=== PATIENT | male | born 1965 | race Caucasian/White ===

== ENCOUNTER 2025-03-18 06:34 | Observation (INO) | payer OTHER, SELFPAY ==
[2025-03-18] VITALS (70 sets, daily range): BP systolic 112–212; BP diastolic 54–120; PULSE 72–95; RESP 10–33; TEMP 36.1–36.9; O2SAT 95–100; BMI 29.2; BMI 29.8
--- NOTE | 2025-03-18 06:35 | XR_ITS ---
WS: [id number] XR chest 1V portable [id number] REASON FOR EXAM: Elevated blood pressure FINDINGS: Mild tortuosity and ectasia of the thoracic aorta normal heart size. Minimal calcified granulomatous disease bilaterally. No acute pulmonary parenchymal or pleural abnormality. Moderate thoracic levoscoliosis and mild degenerative thoracic spondylosis. XR/XR chest 1V portable [id number] IMPRESSION: No acute chest abnormality.
--- NOTE | 2025-03-18 06:35 | ECG_ITS ---
[employer] Test Date: 2025-03-18 Pat Name: Mike Peña Department: Room: Gender: Male Social Security Specialist: : 1965 Requested By: Gerardo Villagran Order Number: [id number] Sarah MD: Tanika Lindsey M.D. Measurements Intervals [place] Rate: 70 P: 52 VT: 166 QRS: 39 QRSD: 112 T: 200 QT: 415 QTc: 448 Interpretive Statements SINUS RHYTHM POSSIBLE LEFT ATRIAL ENLARGEMENT [-0.1mV P-WAVE IN V1/V2] INCOMPLETE RIGHT BUNDLE BRANCH BLOCK [90+ ms QRS DURATION, TERMINAL R IN V1/V2, 40+ ms S IN I/aVL/V4/V5/V6] ST DEVIATION AND MARKED T-WAVE ABNORMALITY, CONSIDER ANTEROLATERAL ISCHEMIA [-0.5+ mV T-WAVE IN I/aVL/V3-V6] ST DEVIATION AND MODERATE T-WAVE ABNORMALITY, CONSIDER INFERIOR ISCHEMIA [-0.1+ mV T-WAVE IN II/aVF] No previous ECG available for comparison Electronically Signed On 03-18-2025 07:56:04 CDT by Tanika Lindsey M.D. [email or web address] [id number]
--- NOTE | 2025-03-18 06:44 | ED_ITS ---
HPI - Dizziness 2 General: Chief Complaint: Dizziness Stated Complaint: high bp Time Seen by Provider: 03/18/25 06:35 History of Present Illness: HPI Narrative: 59-year-old male presents to the emergen cy room with complaint of dizziness and elevated blood pressure he works as a conductor on the train was in between [place] and [place] and began to have the symptoms was taken off the train and brought to the emergency room. Initially on exam he reports generally not feeling well having a bit of a headache. He has not had any difficulty speech or swallowing. No difficulty with gait or balance. Associated symptoms: Denies chest pain or chills Related Data Previous Rx's ?Medication ?Instructions ?Recorded aspirin 81 mg tablet,delayed 81 mg PO DAILY #90 tabs 0 03/19/25 release atorvastatin 40 mg tablet 40 mg PO BEDTIME #90 tabs lisinopril 2.5 mg tablet 2.5 mg PO DAILY #90 tabs metoprolol tartrate 25 mg tablet 25 mg PO BID@0900,210 0 #180 tabs 03/19/25 Allergies Allergy/AdvReac Type Severity Reaction Status Date / Time No Known Allergies Allergy Verified 03/18/25 06:43 Review of Systems 2 Const: Denies: fever(s) or chills Card: Denies: chest pain Resp: Denies: dyspnea GI: Denies: abdominal pain : Denies: dysuria, urinary frequency or urinary urgency Musc: Denies: neck pain or back pain Skin/Breast: Denies: rash PFSH ED 2 PFSH: Medical History Colostomy in place Colon cancer Primary hypertension Surgical History History of partial colectomy Social History Smoking and tobacco/nicotine status: never used tobacco/nicotine Alcohol intake: never Substance/Drug Use: never Physical Exam 2 Const: COMMON NORMALS: no acute distress GENERAL APPEARANCE: cooperative and comfortable ORIENTATION/CONSCIOUSNESS: Yes awake, Yes oriented to person, Yes oriented to place and Yes oriented to time HENMT: COMMON NORMALS: normocephalic, atraumatic and hearing grossly normal bilaterally HEAD & SCALP: normocephalic and atraumatic Resp: COMMON NORMALS: normal respiratory effort, No retractions, No use of accessory muscles and clear to auscultation bilaterally AUSCULTATION: clear to auscultation bilaterally Cardio: COMMON NORMALS: regular rate, regular rhythm and No murmurs present (Cardio) RATE: regular rate RHYTHM: regular rhythm GI: COMMON NORMALS: Soft to palpation and No hepatosplenomegaly present A USCULTATION: Yes normoactive bowel sounds PALPATION: Yes Soft to palpation, No Tenderness to palpation present (GI), No Guarding due to palpation present (GI) and Yes No hepatosplenomegaly present Extremity: COMMON NORMALS: normal to inspection, capillary refill normal, no clubbing, cyanosis or edema, no calf tenderness and no pedal edema Neuro: SENSORIUM/ORIENTATION: Yes oriented to person, Yes oriented to place and Yes oriented to time OTHER: No focal neurologic deficits. No facial droop no speech difficulty good strength in all extremities. Skin: COMMON NORMALS: no rashes or lesions noted GENERAL SKIN EXAM: no rashes or lesions noted Course 2 Vital Signs: Vital signs: Vital Signs Temperature 98.5 F 03/19/25 16:32 Pulse Rate 92 03/19/25 16:32 Respiratory Rate 15 03/19/25 16:32 Blood Pressure 154/95 03/19/25 16:32 Pulse Oximetry 92 03/19/25 16:32 Oxygen Delivery Me thod Room Air 03/19/25 05:00 MDM - Dizziness Medical Decision Making I was asked to come and check on the patient again by the nurse. Had been in the room at approximately 950 and spoke to him he was normal had no facial droop or difficulty with speech at this time but was somewhat drowsy. Did note his blood pressure had decreased slightly. He states his dizziness has improved. At approximately 1010 nurse called me back in the room when I went to the room he now had a facial droop that was new along with slurring of his speech. NIH score was done at that time was 2. Patient had facial droop and some mild dysarthria no other symptoms. Consulted neurology they do not recommend TNKase at this time I do recommend further evaluation monitor blood pressure he has already received aspirin. Patient will likely need MRI during hospitalization discussed with hospitalist consult cardiology. Orders written for admission. Medical Records I reviewed the patient's medical records. Lab Data I reviewed the patient's lab results. 03/19/25 05:25 03/19/25 05:25 Radiology Impressions Chest X-Ray 03/18/25 06:35 IMPRESSION: No acute chest abnormality. Head CT 03/18/25 10:07 IMPRESSION: 1. No acute intracranial hemorrhage or edema. 2. No change compared to study performed earlier the same day. Notified Gerardo Gallegos DO at 03/18/2025 10:17 AM. Head MRI 03/19/25 09:30 IMPRESSION: No acute intracranial findings Laboratory Results WBC 6.89 10^3/uL (3.29-11.43) 03/18/25 06:53 RBC 5.27 10^6/uL (3.85-5.65) 03/18/25 06:53 Hgb 16.10 g/dL (11.27-16.99) 03/18/25 06:53 Hct 46.5 % (37-53) 03/18/25 06:53 MCV 88.2 fl (82-101) 03/18/25 06:53 MCH 30.6 pg (27-33) 03/18/25 06:53 MCHC 34.6 g/dL (30-55) 03/18/25 06:53 RDW 12.6 % (12.1-15.1) 03/18/25 06:53 Plt Count 159 10^3/cmm (157-399) 03/18/25 06:53 MPV 9.1 fL (7.4-10.4) 03/18/25 06:53 Neut % (Auto) 77.1 % 03/18/25 06:53 Lymph % (Auto) 16.3 % 03/18/25 06:53 [place] % (Auto) 4.4 % 03/18/25 06:53 Eos % (Auto) 1.3 % 03/18/25 06:53 Baso % (Auto) 0.3 % 03/18/25 06:53 Neut # (Auto) 5.32 10^3/uL (1.8-7.7) 03/18/25 06:53 Lymph # (Auto) 1.1 10^3/uL (0.8-4.8) 03/18/25 06:53 [place] # (Auto) 0.3 10^3/uL (0.2-0.9) 03/18/25 06:53 Eos # (Auto) 0.1 10^3/uL (0.0-0.8) 03/18/25 06:53 Baso # (Auto) 0.0 10^3/uL (0.0-0.1) 03/18/25 06:53 Nucleated RBC % (auto) 0 % 03/18/25 06:53 Nucleated RBCs # 0.0 /100WBC 03/18/25 06:53 D-Dimer 0.39 ug/mLFEU (0-0.59) 03/18/25 06:53 Sodium 138 mmol/L (136-145) 03/18/25 06:53 Potassium 3.8 mmol/L (3.5-5.1) 03/18/25 06:53 Chloride 99 mmol/L (98-107) 03/18/25 06:53 Carbon Dioxide 26 mmol/L (22-29) 03/18/25 06:53 Anion Gap 16.8 (5-19) 03/18/25 06:53 BUN 11 mg/dL (6-20) 03/18/25 06:53 Creatinine 1.1 mg/dL (0.7-1.2) 03/18/25 06:53 GFR Calculation 68.5 mL/min (90-130) L 03/18/25 06:53 Glucose 119 mg/dL (65-115) H 03/18/25 06:53 POC Glucose 178 mg/dL (70-110) H 03/18/25 10:12 Calculated Osmolality 287 mOsm/kg (285-295) 03/18/25 06:53 Calcium 9.6 mg/dL (8.5-10.5) 03/18/25 06:53 Total Bilirubin 0.5 mg/dL (0.15-1.2) 03/18/25 06:53 AST 20 U/L (0-40) 03/18/25 06:53 ALT 32 U/L (0-41) 03/18/25 06:53 Alkaline Phosphatase 99 U/L (40-130) 03/18/25 06:53 Troponin T Baseline 11 ng/L (0-15) 03/18/25 06:53 Troponin T 120 Minute 8.46 ng/L (0-15) 03/18/25 08:29 Delta Troponin T -2.54 ABS# (0-10) L 03/18/25 08:29 Total Protein 8.2 g/dL (6.6-8.7) 03/18/25 06:53 Albumin 4.7 g/dL (3.5-5.2) 03/18/25 06:53 Globulin 3.5 g/dL (1.3-4.6) 03/18/25 06:53 Urine Color Yellow (Yellow) 03/18/25 07:02 Urine Appearance Clear (CLEAR) 03/18/25 07:02 Urine pH 8.0 (5-7) A 03/18/25 07:02 Ur Specific [place] 1.006 (1.005-1.030) 03/18/25 07:02 Urine Protein Trace (Negative) A 03/18/25 07:02 Urine Glucose (UA) Negative (Normal) 03/18/25 07:02 Urine Ketones Negative (Negative) 03/18/25 07:02 Urine Blood Trace (Negative) A 03/18/25 07:02 Urine Nitrate Negative (Negative) 03/18/25 07:02 Urine Bilirubin Negative (Negative) 03/18/25 07:02 Urine Urobilinogen 0.2 mg/dL (Negative) 03/18/25 07:02 Ur Leukocyte Esterase Negative (Negative) 03/18/25 07:02 Urine RBC 0-2 /hpf (0-2) 03/18/25 07:02 Urine WBC 0-5 /hpf (0-5) 03/18/25 07:02 Ur Squamous Epith Cells 0-5 /hpf (0-5) 03/18/25 07:02 Amorphous Sediment Not Reportable 03/18/25 07:02 Urine Bacteria None seen /hpf (NONE) 03/18/25 07:02 Hyaline Casts 0.40 /lpf 03/18/25 07:02 All radiology interpretation(s) finalized by discharge EKG Data EKG 1: Interpretation: EKG 03/18/2025 6:39 AM sinus rhythm rate of 70 SC interval 166 QTc 448. Incomplete bundle branch block patient has T wave inversion in 1 2 and aVF as well as in V2 through V6 with some ST depression noted. No previous EKGs for comparison EKG 2: Interpretation: EKG 03/18/2025 7:10 AM rate 76 SC interval 164 QTc 452 continues to have T wave inversion in V T2 through V6 with improvement of the previously seen ST depression some persistent ST depression in lead II. T waves upright in 2 and aVF. Compared to EKG done earlier same day EKG 3: Interpretation: EKG 03/18/2025 8:37 AM sinus rhythm rate of 74 parable 171 QTc 490. T wave inversion still present in VT through V6 there is still some ST depression in V4 5 [address] 6[address] No acute ST elevation. Reviewed and compared to previous EKGs done same day Discharge Plan Discharge Patient Disposition: Admitted As Inpatient Admit Provider: Tristin Martins Clinical Impression: CVA (cerebral vascular accident), Dizziness, Hypertensive urgency, Chest discomfort Condition: Stable Discharge Diet: Cardiac Discharge Activity: Increase activity as tolerated Coding Level of Care Code ED Bone Puller for Chg German NIH stroke score NIHSS Level Of Consciousness - 1a: 0 Level Of Consciousness Questions - 1b: Both Correct Level Of Consciousness Commands - 1c: Both Correct Best Gaze - 2: Normal Visual Felder - 3: No Visual Loss Facial Palsy - 4: Minor Paralysis Motor Arm Right - 5: No Drift Motor Arm Left - 5: No Drift Motor Leg Right - 6: No Drift Motor Leg Left - 6: No Drift Limb Ataxia - 7: Absent Sensory - 8: Normal Best Language - 9: No Aphasia Dysarthia - 10: Mild/Moderate Dysarthia Extinction And Inattention - 11: 0 Score Total Score: 2
--- NOTE | 2025-03-18 06:48 | ECG_ITS ---
[employer] Test Date: 2025-03-18 Pat Name: Mike Peña Department: Room: Gender: Male Manager Steel: : 1965 Requested By: Gerardo Villagran Order Number: [id number] Sarah MD: Tanika Lindsey M.D. Measurements Intervals [place] Rate: 76 P: 28 FL: 164 QRS: 30 QRSD: 109 T: 161 QT: 401 QTc: 452 Interpretive Statements SINUS RHYTHM POSSIBLE LEFT ATRIAL ENLARGEMENT [-0.1mV P-WAVE IN V1/V2] INCOMPLETE RIGHT BUNDLE BRANCH BLOCK [90+ ms QRS DURATION, TERMINAL R IN V1/V2, 40+ ms S IN I/aVL/V4/V5/V6] ST DEVIATION AND MARKED T-WAVE ABNORMALITY, CONSIDER ANTEROLATERAL ISCHEMIA [-0.5+ mV T-WAVE IN I/aVL/V3-V6] Compared to ECG 03/18/2025 06:39:48 No significant changes Electronically Signed On 03-18-2025 07:55:54 CDT by Tanika Lindsey M.D. [email or web address] [id number]
[2025-03-18 07:07] LABS: Hematocrit 46.5 % (37-53); Hemoglobin 16.10 g/dL (11.27-16.99); Mean Corpuscular HGB Conc 34.6 g/dL (30-55); Mean Corpuscular Hemoglobin 30.6 pg (27-33); Mean Corpuscular Volume 88.2 fl (82-101); Nucleated Red Blood Cells % 0 %; Platelet Count 159 10^3/cmm (157-399); Red Blood Count 5.27 10^6/uL (3.85-5.65); White Blood Count 6.89 10^3/uL (3.29-11.43)
[2025-03-18] MEDS: labetalol 5 mg/mL SDV 20mL 10 MG IVP (07:12)
[2025-03-18] MEDS: hyDRALAzine 20 mg/mL INJ 1 mL 10 MG IVP ×2 (07:13→08:52)
[2025-03-18 07:21] LABS: Troponin(5th) Baseline 11 ng/L (0-15)
[2025-03-18 07:24] LABS: Alanine Aminotransferase 32 U/L (0-41); Albumin Level 4.7 g/dL (3.5-5.2); Alkaline Phosphatase 99 U/L (40-130); Anion Gap 16.8 (5-19); Aspartate Amino Transferase 20 U/L (0-40); Blood Urea Nitrogen 11 mg/dL (6-20); Calcium 9.6 mg/dL (8.5-10.5); Carbon Dioxide 26 mmol/L (22-29); Chloride 99 mmol/L (98-107); Creatinine Clr Calc Pharmacy 97.7981; Globulin 3.5 g/dL (1.3-4.6); Glucose 119 mg/dL (65-115); Osmolality Calculated 287 mOsm/kg (285-295); Potassium 3.8 mmol/L (3.5-5.1); Sodium 138 mmol/L (136-145); Total Protein 8.2 g/dL (6.6-8.7)
[2025-03-18 08:05] LABS: Glucose Urine UA Negative (Normal); Nitrate Urine Negative (Negative); Specific Gravity, Urine 1.006 (1.005-1.030)
[2025-03-18 08:08] LABS: Add Urine Microscopic? YES
--- NOTE | 2025-03-18 08:37 | ECG_ITS ---
[employer] [facility] Test Date: 2025-03-18 Pat Name: Mike Peña Department: Room: Gender: Male Audio Engineer: : 1965 Requested By: Gerardo Villagran Order Number: [id number] Sarah MD: Tanika Lindsey M.D. Measurements Intervals [place] Rate: 74 P: 24 MA: 171 QRS: 25 QRSD: 108 T: 143 QT: 439 QTc: 490 Interpretive Statements SINUS RHYTHM POSSIBLE LEFT ATRIAL ENLARGEMENT [-0.1mV P-WAVE IN V1/V2] INCOMPLETE RIGHT BUNDLE BRANCH BLOCK [90+ ms QRS DURATION, TERMINAL R IN V1/V2, 40+ ms S IN I/aVL/V4/V5/V6] ST DEVIATION AND MARKED T-WAVE ABNORMALITY, CONSIDER ANTEROLATERAL ISCHEMIA [-0.5+ mV T-WAVE IN I/aVL/V3-V6] Compared to ECG 03/18/2025 07:10:56 No significant changes Electronically Signed On 03-18-2025 18:07:30 CDT by Tanika Lindsey M.D. [id number] [id number]
[2025-03-18] MEDS: LORazepam 1 MG/0.5 ML injection 2 MG IVP (08:42)
--- NOTE | 2025-03-18 08:42 | CT_ITS ---
WS: [id number] CT HEAD NONCONTRAST HISTORY: Dizziness hypertension TECHNIQUE: Contiguous axial imaging performed through the brain. Bone and soft tissue windows. Sagittal and coronal reformats reviewed. All CT scans at [facility] use at least one of these dose optimization techniques: automated exposure control; mA and/or kV adjustment per patient size (includes targeted exams where dose is matched to clinical indication); or iterative reconstruction. DLP: 1113.49 mGy.cm COMPARISON: None available. No acute intracranial hemorrhage, midline shift or mass effect. Very minimal atrophy and small vessel disease. No prior infarct. Ventricles: Normal size with no hydrocephalus. No inferior displacement of the cerebellar tonsils. Paranasal sinuses: As visualized are clear. Mastoid air cells: Well pneumatized. Calvarium and scalp: Skull is intact with no soft tissue edema or swelling. CT/CT head wo con* [id number] IMPRESSION: 1. No acute intracranial hemorrhage or edema. 2. Minimal cerebral atrophy and small vessel disease.
[2025-03-18 09:14] LABS: Troponin 5 2HR 8.46 ng/L (0-15)
[2025-03-18 09:15] LABS: Troponin 5 2HR Delta -2.54 ABS# (0-10)
--- NOTE | 2025-03-18 10:07 | CT_ITS ---
WS: [id number] CT HEAD NONCONTRAST HISTORY: SYMPTOMS OF ACUTE STROKE TECHNIQUE: Contiguous axial imaging performed through the brain. Bone and soft tissue windows. Sagittal and coronal reformats reviewed. All CT scans at [facility] use at least one of these dose optimization techniques: automated exposure control; mA and/or kV adjustment per patient size (includes targeted exams where dose is matched to clinical indication); or iterative reconstruction. DLP: 1162.57 mGy COMPARISON: 03/18/2025 No acute intracranial hemorrhage, midline shift or mass effect. Mild atrophy and small vessel disease. No interval change. No prior infarct. Ventricles: Normal size with no hydrocephalus. Paranasal sinuses: As visualized are clear. Mastoid air cells: Well pneumatized. Calvarium and scalp: Skull is intact with no soft tissue edema or swelling. CT/CT head thrombolytic [id number] IMPRESSION: 1. No acute intracranial hemorrhage or edema. 2. No change compared to study performed earlier the same day. Notified Gerardo Gallegos DO at 03/18/2025 10:17 AM.
--- NOTE | 2025-03-18 10:35 | PC.NURSE ---
Addendum entered by Tena Schafer 03/18/25 10:49: Tele Cate Novak Called back @ 4758 Original Note: Called [facility] Stroke @ 1512
--- NOTE | 2025-03-18 11:11 | PC.NURSE ---
verbal order from Dr. Gallegos to give pt 1L of normal saline.
--- NOTE | 2025-03-18 11:18 | PC.NURSE ---
this RN walked into patients room at approximately 1000, patient appeared to have left sided facial droop and slurred speech. this RN alerted Dr. Gallegos and advised him that there was a change in pt condition and he needed to reassess patient. Provider assessed patient and requested stroke alert be called at 1003. patient was escorted to CT by this RN, Natty staffing manager, and WALLY Castillo- foreign exchange student coordinator.
--- NOTE | 2025-03-18 11:45 | P.HP_ITS ---
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 During the emergency department stay, there was a transient unilateral facial droop and patient-reported speech change, noted as different by a co-worker; speech has partially improved but still sounds different to the patient. Reports transient visual change in the left eye earlier (felt different compared to the right side), which improved by the time of bedside testing. Denies headache, photophobia, chest pain, pressure, or exertional chest symptoms. Denies fever, chills, sore throat, sneezing, cough, myalgias, nausea, vomiting, or diarrhea. No known prior history of stroke or transient ischemic attack. No known history of irregular heartbeat (e.g., atrial fibrillation). Home blood pressures reportedly in the 140s mmHg systolic; more recently at work in the 170s systolic; markedly higher on presentation. Reports motion can provoke nausea and sensation of being upside down during episodes. Intermittent tinnitus reported. Not taking prescription medications currently and denies surx-xol-[id number] nonsteroidal anti-inflammatory drug use. Review of Systems 2 Const: Denies: fever(s), chills, body aches or malaise ENMT: Denies: throat pain Card: Denies: chest pain, edema, pre-syncope or dyspnea on exertion Resp: Denies: dyspnea, productive cough, change in phlegm color or hemoptysis GI: Denies: abdominal pain, nausea, vomiting, diarrhea, constipation, hematochezia or melena : Denies: flank pain, difficulty urinating, urinary frequency or hematuria Musc: Denies: back pain, joint swelling or joint redness Skin/Breast: Denies: rash or new lesions Neuro: Reports: vertigo and Slurred speech present; Denies: headache(s) or confusion Medications/Allergies Home Medications ?Medication ?Instructions ?Recorded ?Confirmed ?Last Taken ?Type No Known Home Medications 03/18/2503/03 Unknown History Allergies Allergy/AdvReac Type Severity Reaction Status Date / Time No Known Allergies Allergy Verified 03/18/25 06:43 PFSH Acute 2 PFSH: Medical History Colostomy in place Colon cancer HTN (hypertension) Surgical History History of partial colectomy Social History (Updated 03/18/25 @ 15:52 by Tristin Martins MD) Smoking and tobacco/nicotine status: never used tobacco/nicotine Alcohol intake: never Substance/Drug Use: never Vitals/I&O/Wt Last Vital Signs Temp 98.5 F 03/18/25 06:35 Pulse 90 03/18/25 11:15 Resp 22 H 03/18/25 11:15 BP 163/90 03/18/25 11:15 Pulse Ox 97 03/18/25 08:55 O2 Del Method Room Air 03/18/25 07:20 Weight last 48 hrs Weight 108.862 kg Physical Exam 2 Const: COMMON NORMALS: patient oriented x3 and alert GENERAL APPEARANCE: c ooperative ORIENTATION/CONSCIOUSNESS: Yes awake HENMT: COMMON NORMALS: oropharynx normal Neck/C-Spine: COMMON NORMALS: no JVD Resp: COMMON NORMALS: normal respiratory effort and clear to auscultation bilaterally AUSCULTATION: clear to auscultation bilaterally Cardio: COMMON NORMALS: no JVD, regular rhythm, S1 normal heart sound present, S2 normal heart sound present and No murmurs present (Cardio) RHYTHM: regular rhythm HEART SOUNDS: S1 normal heart sound present and S2 normal heart sound present GI: COMMON NORMALS: Normal to inspection, nondistended, normoactive bowel sounds present, Soft to palpation and non-tender PALPATION: Yes Soft to palpation Extremity: COMMON NORMALS: no joint enlargement and no pedal edema Neuro: COMMON NORMALS: patient oriented x3 and moves all extremities S ENSORIUM/ORIENTATION: Yes alert OTHER: He is awake and alert, keenly responsive. Pleasant, conversant. Mild left- sided facial droop. No obvious dysarthria. No difficulty with horizontal tracking. No trigger nystagmus or vertigo. Visual stubbs full to confrontation. FNF normal. Sensation symmetrical and intact. No sensory extinction. No upper or lower extremity drift. Skin: COMMON NORMALS: no rashes or lesions noted GENERAL SKIN EXAM: no rashes or lesions noted Data 03/18/25 06:53 03/18/25 06:53 A&P Assessment and plan 1. CVA (cerebral vascular accident): Suspected CVA with left-sided facial droop, dysarthria while in the ED, vertigo preadmission. Stroke code was called. Was seen by neurology. CT head was repeated, unchanged. Per discussion with neurology in ED no intervention recommended. Reviewed vitals, D-dimer, CBC, CMP, UA, head CT, chest x-ray, ED provider note, discussed with ED provider. - Continue aspirin. - Start statin. - Order A1C and lipid profile. - Request carotid duplex ultrasound. - Request MRI brain. - Obtain echocardiogram. - Monitor telemetry. - Neurology consultation/follow-up. - Physical therapy (PT), occupational therapy (OT), and speech therapy (ST) evaluation. - Discussed long-term blood pressure targets 120/80. Permissive hypertension for now. 2. Abnormal EKG: Incomplete RBBB as well as T wave inversion ST depressions in 2, aVL, as well as anterolaterally. Denies chest pain or pressure. However, also with neurological symptoms. Difficult to say if cardiac ischemia may be present. Will need additional assessment and monitoring. - Complete serial 12-lead electrocardiograms (ECGs). - Monitor telemetry for possible cardiac ischemia. - Obtain TTE - Cardiology consultation pending. -Additional workup of cardiovascular risk factors as above. Heparin drip was initially ordered but discontinued. 3. Hypertensive urgency: Received labetalol, hydralazine in ED. Blood pressure so far down to 155/87. Hold off any further antihypertensive agents. Permissive hypertension with suspected CVA, unless blood pressure rising above 220/120. Long-term will benefit from close blood pressure monitoring control. Discussed with him long-term target 120/80 blood pressure. Plan: Hyperglycemia: Possible diabetes, no prior diagnosis. Discussed with him noted elevated sugar. Check A1c. PDMP PDMP Reviewed: Not Reviewed Attestations 2 Medical Necessity Statement*: Place in observation for additional assessment management after CVA, hypertensive urgency, further cardiac assessment for possible cardiac ischemia with abnormal EKG. and High MDM includes amount and/or complexity of data reviewed/ordered [ resulted lab(s)/test(s), ordered lab(s)/test(s) and other healthcare professional discussion] as documented Diagnoses CVA (cerebral vascular accident) I63.9 Abnormal EKG R94.31 Hypertensive urgency I16.0
--- NOTE | 2025-03-18 11:46 | USCV_ITS ---
Mike Peña Age: 59 Gender: M : 1965 Exam Date: 03/18/2025 15:56 Ordering Phys: Tristin Martins MD Technologist: KARMEN Exam Location: [facility] – [place] Indication: TIA BP: 143 / 85 HR: 85 Rhythm: Sinus Technical Quality: Adequate MEASUREMENTS (Male / Female) Normal Values 2D ECHO LV Diastolic Diameter PLAX 4.5 cm 4.2 - 5.9 / 3.9 - 5.3 cm IVS Diastolic Thickness 1.3 cm 0.6 - 1.0 / 0.6 - 0.9 cm IVS Systolic Thickness 2.2 cm LVPW Diastolic Thickness 1.6 cm 0.6 - 1.0 / 0.6 - 0.9 cm LVPW Systolic Thickness 2.6 cm LVOT Diameter 2.0 cm LV Ejection Fraction 2D Teich 62.1 % LV Ejection Fraction MOD 4C 61.2 % LV Ejection Fraction MOD 2C 61.9 % LV Ejection Fraction 2C AL 66.5 % LA Diameter 2.8 cm RA Systolic Volume 4C AL 63.0 ml RA Systolic Volume 4C MOD 61.0 ml LA Sys Volume AL 49.0 cm cubed LA Sys Volume Index AL 19.9 cm cubed/m squared Aorta at Sinotubular Diameter 2.9 cm M-MODE LA Ao Ratio MM 1.6 AV Cusp Separation MM 1.8 cm DOPPLER AV Peak Velocity 148.0 cm/s LVOT Peak Velocity 99.0 cm/s AV Area Cont Eq vti 2.3 cm squared AV Area Cont Eq pk 2.0 cm squared MV Peak Velocity 104.0 cm/s MV Area PHT 6.1 cm squared Mitral E to A Ratio 0.6 TV Peak E Velocity 79.0 cm/s PV Peak Velocity 143.0 cm/s FINDINGS Left Ventricle Moderate left ventricular hypertrophy. Severe hypertrophy of the LV apex. LV ejection fraction around 70%. Grade I/IV diastolic dysfunction (abnormal relaxation filling pattern), normal to mildly elevated filling pressures. Right Ventricle Normal right ventricular size and systolic function. Right Atrium The right atrium is normal in size. Left Atrium The left atrium is normal in size. Mitral Valve Mild mitral valve regurgitation. Aortic Valve No gross abnormalities no Tricuspid Valve No gross abnormalities no Pulmonic Valve Pulmonic valve not well visualized. Pericardium No pericardial effusion. Aorta Normal aortic annulus size. IVC Inferior vena cava not visualized. CONCLUSIONS Features suggestive of hypertrophic cardiomyopathy, possibly of apical type Normal right ventricular size and systolic function. Mild mitral valve regurgitation. There is no pericardial effusion. There are no intracardiac masses. Need to do Doppler examination of the LV mid cavity to the apex to look for any significant gradient Dr Tanika Lindsey MD [facility] (Electronically Signed) Final Date: 18 March 2025 17:18 S
--- NOTE | 2025-03-18 11:51 | PC.NURSE ---
Admit Note Patient admitted to [facility] from ER via stretcher. Covering service notified Dr Martins of the pt's arrival to floor. Patient presents with dizziness and stroke-like symptoms with high blood pressures. Orders reviewed & will continue to monitor. Patient and/or financial services sales representative oriented to environment, equipment, and informed of the following as found in the admission booklet: patient rights & responsibilities, visitor policy, hand and respiratory hygiene practice. Other education includes: fall risk and prevention due to dizziness, stroke monitoring, informed pt on tests such as echocardiogram and carotid duplex. Pt has a co-worker at bedside and he is okay with him being there while nurse asks for pt's information, i asked the pt the co worker can step out to respect his privacy and confidentiality, pt verbalizes, he brought me here and it's okay for me.: Patient and/or financial services sales representative call light and how to use it.
--- NOTE | 2025-03-18 11:52 | USCV_ITS ---
Mike Peña Age: 59 Gender: M : 1965 Exam Date: 03/18/2025 16:11 Ordering Phys: Tristin Martins MD Technologist: KARMEN [place]am [place] [facility] [place]: TIA Risk Factors: Previous Vascular Surgery: Right Brachial BP: / Left Brachial BP: / Right Left Velocity (cm/s) Spectral Plaque Velocity (cm/s) Spectral Plaque Syst/Diast Broadening Syst/Diast Broadening 87.00/ 10.30 Prox CCA 87.70 / 9.20 80.00/ 17.30 Mid CCA 111.40/ 14.80 95.10/ 9.20 Distal CCA 88.10 / 9.80 52.80/ 5.60 Prox ICA 65.50 / 7.80 62.60/ 7.70 Mid ICA 75.10 / 11.20 49.50/ 9.00 Distal ICA 60.90 / 8.40 81.20 ECA 144.90 0.70 ICA/CCA 0.90 Antegrade Vertebral Antegrade 39.70/ 10.30 cm/s 46.60/ 12.60 cm/s Tri Subclavian Tri 107.3 139.7 0 0 FINDINGS Comparison: none available. No significant elevation of systolic or diastolic velocities. Waveforms are normal. Diffuse, mild bilateral scattered calcified plaque and intimal thickening throughout the common carotid arteries and extending through the bifurcation. CONCLUSIONS Bilateral ICA stenosis less than 50%. Mild carotid atherosclerosis. Dr. Lucy Ramirez DO (Electronically Signed) Final Date: 19 March 2025 07:47 S
--- NOTE | 2025-03-18 12:42 | P.CONIM_ITS ---
Providers/Reason For Consult 2 Consulting Physician/Specialty*: SHARATH Lindsey MD/cardiology Reason for Consult*: Patient uncontrolled blood pressure, abnormal EKG and some nonspecific chest symptoms Requesting Physician: Dr. Martins Attending Physician: Tristin Martins History of Present Illness History of Present Illness Mike Peña is a 59 year old male With no significant past medical history, is admitted to the hospital through the emergency room where he presented with complaints of nausea/dizziness/unsteady gait. The patient was found to have an abnormal EKG. Cardiology consult is requested for further cardiac evaluation and recommendations. This patient has no significant past medical history for any heart disease. Approximately a month ago, he was found to have elevated blood pressure, as he was taking his pressure at the workplace. He made an appointment to see his primary care provider for this. Apparently it has not been done yet. He has not been taking any blood pressure medications. This morning, he was passing through this area on a train. He works as a conductor in the train. He started having the nausea and dizziness. He also felt unsteady in his gait. His blood pressure was found to be elevated. For these complaints, he came to the emergency room. He did not have any chest pain or chest tightness. No palpitations. No unusual shortness of breath. No fever, chills or cough. His family history significant for mother dying of brain aneurysm in her 70s. Father had a myocardial infarction in his 80s. No other relevant family history. Patient denies any smoking abuse, alcohol abuse or any other substance abuse. He has a history of colon cancer and had a colostomy approximately 9 years ago at the [facility] in [place]. He had several EKGs at that time. But never had any stress test or cardiac catheterization, as far as the patient can recall. Review of Systems 2 Narrative: CONSTITUTIONAL: No fever or chills. EYES: No blurring of vision or other visual disturbances lately. ENT: No hoarseness of voice, auditory disturbances or sore throat. CARDIOVASCULAR: As mentioned above. RESPIRATORY: No significant cough. GASTROINTESTINAL: History of colostomy approximately 9 years ago. GENITOURINARY: No dysuria or hematuria. INTEGUMENTARY: No skin rashes or history of skin cancer. NEURO: No transient ischemic attacks or amaurosis. PSYCHIATRIC: No history of psychosis or major depression. HEMATOLOGIC: No bleeding disorders or significant anemia. ENDOCRINE: No history of polyuria or polydipsia. MUSCULOSKELETAL: No recent joint pain or swelling. ALLERGY/IMMUNOLOGY: As mentioned above. Medications/Allergies Home Medications ?Medication ?Instructions ?Recorded ?Confirmed ?Last Taken ?Type No Known Home Medications 03/18/2503/03 Unknown History Allergies Allergy/AdvReac Type Severity Reaction Status Date / Time No Known Allergies Allergy Verified 03/18/25 06:43 Current Medications Generic Name Dose Route Start Last Admin Trade Name Freq PRN Reason Stop Dose Admin Heparin Sodium/Sodium Chloride 25,000 unit in 500 mls @ 0 mls/hr 03/18/25 10:08 03/18/25 11:37 Heparin Drip IV Not Given CONT RUBY Protocol Per Protocol PFSH Acute 2 PFSH: Medical History Colostomy in place Colon cancer HTN (hypertension) Surgical History History of partial colectomy Social History Smoking and tobacco/nicotine status: never used tobacco/nicotine Alcohol intake: never Substance/Drug Use: never Vitals/I&O/Wt Last Vital Signs Temp 97.0 F L 03/18/25 11:59 Pulse 90 03/18/25 11:59 Resp 19 H 03/18/25 11:59 BP 155/87 03/18/25 11:59 Pulse Ox 100 03/18/25 11:59 O2 Del Method Room Air 03/18/25 11:59 Weight last 48 hrs Weight 245 lb Weight 240 lb Physical Exam 2 Narrative: GENERAL: The patient is alert and oriented times three. Not in any acute distress. HEENT: No significant pallor, icterus or lymphadenopathy.Oral cavity: There are no mucous membrane lesions. NECK: Trachea appears to be central. No masses noted. No JVD or thyromegaly appreciated. RESPIRATORY: Chest is symmetrical. No intercostals muscle retraction or any accessory muscle activation. There is no chest wall tenderness. Breath sounds are heard bilaterally. No rales or rhonchi heard. No evidence of any consolidation. BREASTS: Deferred. HEART: The heart sounds are normal. No S3 or S4. No significant murmurs. No pericardial rub ABDOMEN: No vessel pulsations or distention. No tenderness. No organomegaly. The colostomy bag is draining appreciated. Bowel sounds are normally heard. : Deferred. RECTAL: Deferred. LYMPHATIC: No lymphadenopathy noted in the neck. EXTREMITIES: No edema or cyanosis. No clubbing. Good peripheral pulses MUSCULOSKELETAL: No acute joint deformities or swelling SKIN: There are no significant rashes or ecchymosis NEUROPSYCHIATRIC: The patient is alert and oriented x3. Appears to be in a good mood. No tremors or rigidity noted. Data 03/18/25 06:53 03/18/25 06:53 Other Labs: Laboratory Last Values WBC 6.89 10^3/uL (3.29-11.43) 03/18/25 06:53 RBC 5.27 10^6/uL (3.85-5.65) 03/18/25 06:53 Hgb 16.10 g/dL (11.27-16.99) 03/18/25 06:53 Hct 46.5 % (37-53) 03/18/25 06:53 MCV 88.2 fl (82-101) 03/18/25 06:53 MCH 30.6 pg (27-33) 03/18/25 06:53 MCHC 34.6 g/dL (30-55) 03/18/25 06:53 RDW 12.6 % (12.1-15.1) 03/18/25 06:53 Plt Count 159 10^3/cmm (157-399) 03/18/25 06:53 MPV 9.1 fL (7.4-10.4) 03/18/25 06:53 Neut % (Auto) 77.1 % 03/18/25 06:53 Lymph % (Auto) 16.3 % 03/18/25 06:53 Porter % (Auto) 4.4 % 03/18/25 06:53 Eos % (Auto) 1.3 % 03/18/25 06:53 Baso % (Auto) 0.3 % 03/18/25 06:53 Neut # (Auto) 5.32 10^3/uL (1.8-7.7) 03/18/25 06:53 Lymph # (Auto) 1.1 10^3/uL (0.8-4.8) 03/18/25 06:53 Porter # (Auto) 0.3 10^3/uL (0.2-0.9) 03/18/25 06:53 Eos # (Auto) 0.1 10^3/uL (0.0-0.8) 03/18/25 06:53 Baso # (Auto) 0.0 10^3/uL (0.0-0.1) 03/18/25 06:53 Nucleated RBC % (auto) 0 % 03/18/25 06:53 Nucleated RBCs # 0.0 /100WBC 03/18/25 06:53 D-Dimer 0.39 ug/mLFEU (0-0.59) 03/18/25 06:53 Sodium 138 mmol/L (136-145) 03/18/25 06:53 Potassium 3.8 mmol/L (3.5-5.1) 03/18/25 06:53 Chloride 99 mmol/L (98-107) 03/18/25 06:53 Carbon Dioxide 26 mmol/L (22-29) 03/18/25 06:53 Anion Gap 16.8 (5-19) 03/18/25 06:53 BUN 11 mg/dL (6-20) 03/18/25 06:53 Creatinine 1.1 mg/dL (0.7-1.2) 03/18/25 06:53 GFR Calculation 68.5 mL/min (90-130) L 03/18/25 06:53 Glucose 119 mg/dL (65-115) H 03/18/25 06:53 POC Glucose 178 mg/dL (70-110) H 03/18/25 10:12 Calculated Osmolality 287 mOsm/kg (285-295) 03/18/25 06:53 Calcium 9.6 mg/dL (8.5-10.5) 03/18/25 06:53 Total Bilirubin 0.5 mg/dL (0.15-1.2) 03/18/25 06:53 AST 20 U/L (0-40) 03/18/25 06:53 ALT 32 U/L (0-41) 03/18/25 06:53 Alkaline Phosphatase 99 U/L (40-130) 03/18/25 06:53 Troponin T Baseline 11 ng/L (0-15) 03/18/25 06:53 Troponin T 120 Minute 8.46 ng/L (0-15) 03/18/25 08:29 Delta Troponin T -2.54 ABS# (0-10) L 03/18/25 08:29 Total Protein 8.2 g/dL (6.6-8.7) 03/18/25 06:53 Albumin 4.7 g/dL (3.5-5.2) 03/18/25 06:53 Globulin 3.5 g/dL (1.3-4.6) 03/18/25 06:53 Urine Color Yellow (Yellow) 03/18/25 07:02 Urine Appearance Clear (CLEAR) 03/18/25 07:02 Urine pH 8.0 (5-7) A 03/18/25 07:02 Ur Specific Watkins 1.006 (1.005-1.030) 03/18/25 07:02 Urine Protein Trace (Negative) A 03/18/25 07:02 Urine Glucose (UA) Negative (Normal) 03/18/25 07:02 Urine Ketones Negative (Negative) 03/18/25 07:02 Urine Blood Trace (Negative) A 03/18/25 07:02 Urine Nitrate Negative (Negative) 03/18/25 07:02 Urine Bilirubin Negative (Negative) 03/18/25 07:02 Urine Urobilinogen 0.2 mg/dL (Negative) 03/18/25 07:02 Ur Leukocyte Esterase Negative (Negative) 03/18/25 07:02 Urine RBC 0-2 /hpf (0-2) 03/18/25 07:02 Urine WBC 0-5 /hpf (0-5) 03/18/25 07:02 Ur Squamous Epith Cells 0-5 /hpf (0-5) 03/18/25 07:02 Amorphous Sediment Not Reportable 03/18/25 07:02 Urine Bacteria None seen /hpf (NONE) 03/18/25 07:02 Hyaline Casts 0.40 /lpf 03/18/25 07:02 EKG 1: My Interpretation: The EKG showed a normal sinus rhythm with a persistent T inversions in the precordial and high lateral leads. Minimal ST depressions in these leads. Subsequent EKG showed some T inversions in the inferior leads as well. These features may also suggest cardiomyopathy Other data: Echocardiogram from today Features suggestive of hypertrophic cardiomyopathy, possibly of apical type Normal right ventricular size and systolic function. Mild mitral valve regurgitation. There is no pericardial effusion. There are no intracardiac masses. Need to do Doppler examination of the LV mid cavity to the apex to look for any significant gradient A&P Assessment and plan 1. Abnormal EKG: The EKG changes could be will be related to cardiomyopathy. Ischemia cannot be ruled out. For further evaluation, a Myocardial perfusion imaging would be appropriate. 2. 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 No documented arrhythmias so far. 3. Dizziness: The etiology is unclear. Patient may have some form of tubular dysfunction. Arrhythmia is a possibility. So far there is no documented arrhythmia 4. Primary hypertension: Patient has stage II hypertension. May start on antihypertensive medication. In view of the hypertrophy, I may start him on a beta-kristi Plan: Reviewed the echocardiogram. Patient needs to have a Doppler study of the LV cavity to look for any gradient Consider Myocardial perfusion imaging, to further evaluate the coronary status. May start him on a beta-kristi -carvedilol 6.25 mg p.o. twice daily May be closely monitored on telemetry. Based on the clinical progress, further recommendations will be made. Thank you for the opportunity to evaluate this patient and make these recommendations PDMP PDMP Reviewed: Not Reviewed Coding Level of Care Code 54482 Diagnoses Abnormal EKG R94.31 Hypertrophic cardiomyopathy I42.2 Dizziness R42 Primary hypertension I10 Hypertension type: primary hypertension
[2025-03-18 12:46] LABS: Troponin 5 6HR 12.12 ng/L (0-15); Troponin 5 6HR Delta 1.12 ng/L (0-12)
[2025-03-18] MEDS: ondansetron 2 mg/ML SDV 2 mL 4 MG IVP (12:50)
--- NOTE | 2025-03-18 16:13 | PC.NURSE ---
Pt stated he still feels being cold and have chills even if the room was feels so warm. Check Temp Orally-101.3 F. PRN Tylenol given, Dr Rodrigez notified.
--- NOTE | 2025-03-18 18:45 | PC.NURSE ---
Shift Note Frequent safety and comfort rounds continue. Orders and/or nursing care completed as indicated. Patient monitored for response to intervention and treatment(s). Education provided includes NPO after midnight for cardiac stress test to check his heart, informed pt and that he will have MRI head to rule out stroke, he will have PT treatment while here and he will start taking atorvastatin and aspirin and to let nurse know for any pain,discomfort or dizziness. Pt stated, his speech and voice tone has pretty much return back to normal, pt stated he is not dizzy and just want to get some rest tonight. Pt has more color in his face than his arrival to room this morning. Patient and/or telephone service representative verbalizes understanding. Will continue to monitor.
--- NOTE | 2025-03-18 21:50 | ECG_ITS ---
[employer] Test Date: 2025-03-18 Pat Name: Mike Peña Department: Room: 104 Gender: Male It Investment/Portfolio Manager: : 1965 Requested By: Andrea Villagran Order Number: [id number] Smith MD: Tanika Lindsey M.D. Measurements Intervals [place] Rate: 92 P: 44 MT: 164 QRS: 19 QRSD: 110 T: 180 QT: 384 QTc: 476 Interpretive Statements SINUS RHYTHM POSSIBLE LEFT ATRIAL ENLARGEMENT [-0.1mV P-WAVE IN V1/V2] INCOMPLETE RIGHT BUNDLE BRANCH BLOCK [90+ ms QRS DURATION, TERMINAL R IN V1/V2, 40+ ms S IN I/aVL/V4/V5/V6] ST DEVIATION AND MODERATE T-WAVE ABNORMALITY, CONSIDER ANTEROLATERAL ISCHEMIA [-0.1+ mV T-WAVE IN V3-V6] ST DEVIATION AND MODERATE T-WAVE ABNORMALITY, CONSIDER INFERIOR ISCHEMIA [-0.1+ mV T-WAVE IN II/aVF] Compared to ECG 03/18/2025 08:37:46 No significant changes Electronically Signed On 03-19-2025 13:46:37 CDT by Tanika Lindsey M.D. [email or web address]
[2025-03-18] MEDS: metoprolol tartrate 1 mg/1 mL SDV 5 mL 5 MG IVP (22:32)
--- NOTE | 2025-03-18 22:48 | ECG_ITS ---
[employer] Test Date: 2025-03-18 Pat Name: Mike Peña Department: Room: 104 Gender: Male Preventative Maintenance Technician: : 1965 Requested By: Tristin Martins Order Number: [id number] Sarah MD: Tanika Lindsey M.D. Measurements Intervals [place] Rate: 83 P: 42 DE: 144 QRS: 35 QRSD: 106 T: 197 QT: 400 QTc: 472 Interpretive Statements SINUS RHYTHM POSSIBLE LEFT ATRIAL ENLARGEMENT [-0.1mV P-WAVE IN V1/V2] INCOMPLETE RIGHT BUNDLE BRANCH BLOCK [90+ ms QRS DURATION, TERMINAL R IN V1/V2, 40+ ms S IN I/aVL/V4/V5/V6] ST DEVIATION AND MARKED T-WAVE ABNORMALITY, CONSIDER ANTEROLATERAL ISCHEMIA [-0.5+ mV T-WAVE IN I/aVL/V3-V6] ST DEVIATION AND MODERATE T-WAVE ABNORMALITY, CONSIDER INFERIOR ISCHEMIA [-0.1+ mV T-WAVE IN II/aVF] Compared to ECG 03/18/2025 21:50:27 No significant changes Electronically Signed On 03-19-2025 13:46:07 CDT by Tanika Lindsey M.D. [email or web address]
[2025-03-18 23:39] LABS: Troponin(5th) Baseline 34 ng/L (0-15)
[2025-03-19] VITALS (16 sets, daily range): BP systolic 154–183; BP diastolic 78–104; PULSE 80–105; RESP 15–29; TEMP 36.6–36.9; O2SAT 92–98; BMI 29.0
[2025-03-19] MEDS: heparin 5,000 unit/mL INJ 1 mL 5000 UNIT IVP (00:52)
[2025-03-19] MEDS: heparin drip 25,000 UNIT/500 ML PREMIX 32 UNIT IV (00:53)
[2025-03-19 01:45] LABS: Troponin 5 2HR 40.61 ng/L (0-15); Troponin 5 2HR Delta 6.61 ABS# (0-10)
[2025-03-19] MEDS: diphenhydrAMINE 50 mg/mL SDV 1mL IVP (01:57)
--- NOTE | 2025-03-19 03:47 | PC.NURSE ---
Telemetry: Patient's telemetry was concerning for St elevation, Dr. Sevilla gave orders for troponin series. Trop showed elevation so Dr. Sevilla started heparin gtt order
--- NOTE | 2025-03-19 03:49 | PC.NURSE ---
Anxiety: patient was feeling anxious and requested something for sleep and anxiety, Dr. Sevilla gave orders for 1mg PO Lorazepam and 50mg benadryl IVP ONCE.
[2025-03-19 05:36] LABS: Hematocrit 42.0 % (37-53); Hemoglobin 14.80 g/dL (11.27-16.99); Mean Corpuscular HGB Conc 35.2 g/dL (30-55); Mean Corpuscular Hemoglobin 31.2 pg (27-33); Mean Corpuscular Volume 88.4 fl (82-101); Nucleated Red Blood Cells % 0 %; Platelet Count 163 10^3/cmm (157-399); Red Blood Count 4.75 10^6/uL (3.85-5.65); White Blood Count 12.20 10^3/uL (3.29-11.43)
[2025-03-19 05:51] LABS: Troponin 5 6HR 43.19 ng/L (0-15); Troponin 5 6HR Delta 9.19 ng/L (0-12)
[2025-03-19 06:28] LABS: Anion Gap 16.0 (5-19); Blood Urea Nitrogen 11 mg/dL (6-20); Calcium 8.4 mg/dL (8.5-10.5); Carbon Dioxide 22 mmol/L (22-29); Chloride 105 mmol/L (98-107); Creatinine Clr Calc Pharmacy 107.1698; Glucose 113 mg/dL (65-115); Osmolality Calculated 288 mOsm/kg (285-295); Potassium 4.0 mmol/L (3.5-5.1); Sodium 139 mmol/L (136-145)
[2025-03-19 06:29] LABS: Cholesterol 169 mg/dL (0-200); HDL Cholesterol 37 mg/dL (60-100); Triglycerides 117 mg/dL (0-150)
[2025-03-19 07:10] LABS: Partial Thromboplastin Time 117.8 SECONDS (23.9-36.7)
--- NOTE | 2025-03-19 07:24 | PM.PN ---
Subjective Subjective: Patient had a Myocardial perfusion imaging today. He was found to have a small area of possible ischemia in the apical lateral region. He has no chest pain. Vital signs remained stable. Medications: Medication Review Details: Current Medications Acetaminophen (Acetaminophen 325 Mg Tablet) 650 mg PO Q6H PRN PRN Reason: Mild/Mod Pain Or Temp >/= 101 Aminophylline (Aminophylline 25 Mg/Ml Sdv 20 Ml) 25 mg IVP Q2M PRN PRN Reason: see dose instructions Stop: 03/20/25 06:30 Aspirin (Aspirin 81 Mg Ec Tablet) 162 mg PO DAILY [facility] Atorvastatin Calcium (Atorvastatin 40 Mg Tablet) 40 mg PO BEDTIME [facility] Last Admin: 03/18/25 20:15 Dose: 40 mg Heparin Sodium (Porcine) (Heparin 5,000 Unit/Ml Inj 1 Ml) 0 unit IVP PRN PRN; Protocol PRN Reason: Heparin Weight Based Protocol -Subsequent Bolus Sodium Chloride (Sodium Chloride 0.9%) 1,000 mls @ 100 mls/hr IV .Q10H [facility] Last Admin: 03/18/25 22:32 Dose: 100 mls/hr Heparin Sodium/Sodium Chloride (Heparin Drip) 25,000 unit in 500 mls @ 0 mls/hr IV CONT RUBY; Protocol Last Admin: 03/19/25 00:53 Dose: 14.4 unit/kg/hr, 32 mls/hr Metoprolol Tartrate (Metoprolol Tartrate 25 Mg Tablet) 25 mg PO BID@0900,2100 [facility] Last Admin: 03/18/25 22:32 Dose: 25 mg Nitroglycerin (Nitroglycerin 0.4 Mg Sublingual Tablet) 0.4 mg SUBLINGUAL Q5M PRN PRN Reason: CHEST PAIN Stop: 03/20/25 06:30 Ondansetron HCl (Ondansetron 2 Mg/Ml Sdv 2 Ml) 4 mg IVP Q8H PRN PRN Reason: vomiting, or N/V if npo Last Admin: 03/18/25 12:50 Dose: 4 mg Ondansetron HCl (Ondansetron 2 Mg/Ml Sdv 2 Ml) 4 mg IVP Q2M PRN PRN Reason: NAUSEA Regadenoson (Regadenoson 0.4 Mg/5 Ml Syringe) 0.4 mg IVP ONCE PRN PRN Reason: Lexiscan Stress Test Vitals/I&O/Wt Last Vital Signs Temp 98.5 F 03/19/25 04:00 Pulse 80 03/19/25 05:26 Resp 23 H 03/19/25 05:00 BP 170/93 03/19/25 05:00 Pulse Ox 96 03/19/25 05:00 O2 Del Method Room Air 03/19/25 05:00 03/18/25 03/19/25 03/19/25 22:59 06:59 14:59 Intake Total 1000 / 1000 Output Total 250 / 250 Balance 1000 / 1000 -250 / 750 Weight last 48 hrs Weight 238 lb Weight 245 lb Weight 240 lb Physical Exam Narrative: GENERAL: The patient is alert and oriented times three. Not in any acute distress. HEENT: No significant pallor, icterus or lymphadenopathy.Oral cavity: There are no mucous membrane lesions. NECK: Trachea appears to be central. No masses noted. No JVD or thyromegaly appreciated. RESPIRATORY: Chest is symmetrical. No intercostals muscle retraction or any accessory muscle activation. There is no chest wall tenderness. Breath sounds are heard bilaterally. No rales or rhonchi heard. No evidence of any consolidation. BREASTS: Deferred. HEART: The heart sounds are normal. No S3 or S4. No significant murmurs. No pericardial rub ABDOMEN: No vessel pulsations or distention. No tenderness. No organomegaly. The colostomy bag is draining appreciated. Bowel sounds are normally heard. : Deferred. RECTAL: Deferred. LYMPHATIC: No lymphadenopathy noted in the neck. EXTREMITIES: No edema or cyanosis. No clubbing. Good peripheral pulses MUSCULOSKELETAL: No acute joint deformities or swelling SKIN: There are no significant rashes or ecchymosis NEUROPSYCHIATRIC: The patient is alert and oriented x3. Appears to be in a good mood. No tremors or rigidity noted. Data 03/19/25 05:25 03/19/25 05:25 Other Labs: Laboratory Last Values WBC 12.20 10^3/uL (3.29-11.43) H 03/19/25 05:25 RBC 4.75 10^6/uL (3.85-5.65) 03/19/25 05:25 Hgb 14.80 g/dL (11.27-16.99) 03/19/25 05:25 Hct 42.0 % (37-53) 03/19/25 05:25 MCV 88.4 fl (82-101) 03/19/25 05:25 MCH 31.2 pg (27-33) 03/19/25 05:25 MCHC 35.2 g/dL (30-55) 03/19/25 05:25 RDW 13.0 % (12.1-15.1) 03/19/25 05:25 Plt Count 163 10^3/cmm (157-399) 03/19/25 05:25 MPV 9.0 fL (7.4-10.4) 03/19/25 05:25 Neut % (Auto) 83.4 % 03/19/25 05:25 Lymph % (Auto) 10.2 % 03/19/25 05:25 Rich % (Auto) 5.6 % 03/19/25 05:25 Eos % (Auto) 0.3 % 03/19/25 05:25 Baso % (Auto) 0.2 % 03/19/25 05:25 Neut # (Auto) 10.16 10^3/uL (1.8-7.7) H 03/19/25 05:25 Lymph # (Auto) 1.3 10^3/uL (0.8-4.8) 03/19/25 05:25 Rich # (Auto) 0.7 10^3/uL (0.2-0.9) 03/19/25 05:25 Eos # (Auto) 0.0 10^3/uL (0.0-0.8) 03/19/25 05:25 Baso # (Auto) 0.0 10^3/uL (0.0-0.1) 03/19/25 05:25 Nucleated RBC % (auto) 0 % 03/19/25 05:25 Nucleated RBCs # 0.0 /100WBC 03/19/25 05:25 APTT 117.8 SECONDS (23.9-36.7) H 03/19/25 06:39 D-Dimer 0.39 ug/mLFEU (0-0.59) 03/18/25 06:53 Sodium 139 mmol/L (136-145) 03/19/25 05:25 Potassium 4.0 mmol/L (3.5-5.1) 09/17/25 05:25 Chloride 105 mmol/L (98-107) 03/19/25 05:25 Carbon Dioxide 22 mmol/L (22-29) 03/19/25 05:25 Anion Gap 16.0 (5-19) 03/19/25 05:25 BUN 11 mg/dL (6-20) 03/19/25 05:25 Creatinine 1.0 mg/dL (0.7-1.2) 03/19/25 05:25 GFR Calculation 76.5 mL/min (90-130) L 03/19/25 05:25 Glucose 113 mg/dL (65-115) 03/19/25 05:25 POC Glucose 178 mg/dL (70-110) H 03/18/25 10:12 Calculated Osmolality 288 mOsm/kg (285-295) 03/19/25 05:25 Calcium 8.4 mg/dL (8.5-10.5) L 03/19/25 05:25 Total Bilirubin 0.5 mg/dL (0.15-1.2) 03/18/25 06:53 AST 20 U/L (0-40) 03/18/25 06:53 ALT 32 U/L (0-41) 03/18/25 06:53 Alkaline Phosphatase 99 U/L (40-130) 03/18/25 06:53 Troponin T Baseline 34 ng/L (0-15) H 03/18/25 23:01 Troponin T 120 Minute 40.61 ng/L (0-15) H 03/19/25 01:05 Delta Troponin T 6.61 ABS# (0-10) 03/19/25 01:05 Troponin T Hi Sens 6Hr 43.19 ng/L (0-15) H 03/19/25 05:25 Troponin T Hi Sens 6Hr Delta 9.19 ng/L (0-12) 03/19/25 05:25 Total Protein 8.2 g/dL (6.6-8.7) 03/18/25 06:53 Albumin 4.7 g/dL (3.5-5.2) 03/18/25 06:53 Globulin 3.5 g/dL (1.3-4.6) 03/18/25 06:53 Triglycerides 117 mg/dL (0-150) 03/19/25 05:25 Cholesterol 169 mg/dL (0-200) 03/19/25 05:25 LDL Cholesterol, Calc 109 mg/dL (50-129) 03/19/25 05:25 HDL Cholesterol 37 mg/dL (60-100) L 03/19/25 05:25 LDL/HDL Ratio 2.95 RATIO (0.00-3.22) 03/19/25 05:25 Cholesterol/HDL Ratio 4.57 mg/dL (1.0-5.00) 03/19/25 05:25 Urine Color Yellow (Yellow) 03/18/25 07:02 Urine Appearance Clear (CLEAR) 03/18/25 07:02 Urine pH 8.0 (5-7) A 03/18/25 07:02 Ur Specific [place] 1.006 (1.005-1.030) 03/18/25 07:02 Urine Protein Trace (Negative) A 03/18/25 07:02 Urine Glucose (UA) Negative (Normal) 03/18/25 07:02 Urine Ketones Negative (Negative) 03/18/25 07:02 Urine Blood Trace (Negative) A 03/18/25 07:02 Urine Nitrate Negative (Negative) 03/18/25 07:02 Urine Bilirubin Negative (Negative) 03/18/25 07:02 Urine Urobilinogen 0.2 mg/dL (Negative) 03/18/25 07:02 Ur Leukocyte Esterase Negative (Negative) 03/18/25 07:02 Urine RBC 0-2 /hpf (0-2) 03/18/25 07:02 Urine WBC 0-5 /hpf (0-5) 03/18/25 07:02 Ur Squamous Epith Cells 0-5 /hpf (0-5) 03/18/25 07:02 Amorphous Sediment Not Reportable 03/18/25 07:02 Urine Bacteria None seen /hpf (NONE) 03/18/25 07:02 Hyaline Casts 0.40 /lpf 03/18/25 07:02 A&P Assessment and plan 1. Abnormal nuclear cardiac imaging test: The implications of the Myocardial perfusion imaging results were discussed with the patient and his in detail. In order to further evaluate her coronary status, he requires a cardiac catheterization. However the patient has no chest pain and is remaining stable. He is wanting to go home and to have follow-up with a local branch sales and service representative in [place]. Since that the patient has no specific symptoms, it may be appropriate to do so. I gave him the name of Dr. Kt Bowens at the [facility]. 2. Abnormal EKG: The EKG changes could be will be related to cardiomyopathy. Ischemia cannot be ruled out. For further evaluation, a Myocardial perfusion imaging would be appropriate. 3. 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 No documented arrhythmias so far. This needs to be closely followed up 4. Dizziness: The etiology is unclear. Patient may have some form of tubular dysfunction. Arrhythmia is a possibility. So far there is no documented arrhythmia 5. Primary hypertension: Patient has stage II hypertension. May increase the dose of the metoprolol to 50 mg p.o. twice daily. His antihypertensive medication need to be optimized. Plan: If the patient continues remain stable, may be discharged home to have follow-up evaluations with branch sales and service representative in [place]. PDMP PDMP Reviewed: Not Reviewed Attestations Medical Necessity Statement*: Possible discharge home today Coding Level of Care Code 11848 Diagnoses Abnormal nuclear cardiac imaging test R93.1 Abnormal EKG R94.31 Hypertrophic cardiomyopathy I42.2 Dizziness R42 Primary hypertension I10 Hypertension type: primary hypertension
--- NOTE | 2025-03-19 09:00 | ECG_ITS ---
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 The perfusion scan will be documented separately. DATA: Baseline heart rate was 94 beats per minute. Baseline blood pressure was 190/90 millimeters of mercury. Target heart rate was 161. Maximum heart rate achieved was 116 which was 72% of the predicted target heart rate. Maximum blood pressure was 190/90 millimeters of mercury. The reason for ending the test was [completion of the protocol]. The patient did not experience any symptoms. [] ELECTROCARDIOGRAM: BASELINE: Sinus rhythm. Normal axis. Inferolateral inverted T waves with ST elevation in V1 and aVR cannot rule out ischemia could be repolarization abnormality EXERCISE: After Lexiscan injection, significant inferolateral ST depression noted which is persisting in the 8-minute of recovery CONCLUSION: Please note due to baseline abnormality of the EKG specificity and sensitivity of the EKG portion of LexiScan MIBI stress test will be low 1. EKG is suggestive of ischemia 2. Lexiscan injection unremarkable 3. Perfusion scan will be documented separately. Electronically Signed On 03-19-2025 11:47:00 CDT by LAY ROGERS [email or web address]
--- NOTE | 2025-03-19 09:30 | MR_ITS ---
WS: [id number] MRI HEAD WITHOUT CONTRAST TECHNIQUE: Sagittal T1, T2 axial, T2 axial FLAIR, axial and coronal T1 images, axial susceptibility weighted imaging, axial diffusion weighted images, and coronal T2 images were obtained. CLINICAL INFORMATION: cva FINDINGS: No evidence of restricted diffusion to suggest acute ischemia. Mild small vessel changes. No significant parenchymal volume loss. Normal posterior fossa. Normal vascular flow voids at the skull base. No extra-axial fluid collections. No evidence of mass or mass effect. Paranasal sinuses are well aerated. Normal posterior nasopharynx. Mastoid air cells are well aerated. No hemosiderin on susceptibility-weighted images. Normal optic chiasm and pituitary infundibulum. MR/MR head wo con* [id number] IMPRESSION: No acute intracranial findings
--- NOTE | 2025-03-19 10:02 | PC.CHAP ---
Pastoral Care Encounter/Spiritual Assessment Type of Contact [] Declined distiller visit [] Patient/Family/Request visit [] Outpatient visit [] Follow-up visit [] Physician referral [] Code/Alert [x] Routine visit [] Staff referral [] Actively dying [] Patient sleeping [x] Family support [] [] Out of room [] Palliative care [] [] Receiving care in room [] Pre-surgical visit [] Trauma [] Long length of stay [] ICU visit [] Other: Relational/Emotional Strength [x] Patient feels connected with others/family/visitors/staff [] Distress [] Loneliness/isolation [] Abandonment Spirituality of Patient [x] Person of Janessa [] Attends Tenriism of their Janessa [x] Believes in Prayer [] Reads Bible or Latter-Day materials [] There are Spiritual issues to be addressed Teasel Setter Interventions [x] Prayer [] Active listening [] Non-anxious presence [x] Spiritual/emotional support [] Crisis/trauma care [] Spiritual counseling [] Bereavement support [] Provided bereavement packet [] Provided Bible/devotional materials [] Provided toy/stuffed animal, coloring book to patient or family member [] Provided Communion [] Anointing/Cooter [] Salvation [x] Completed spiritual assessment [] Other: Impact on Illness or Injury [] Angry [] Fearful [] Anxious [] Often cries [] Exhaustion [] Unable to work [] Unable to attend christian [] Unable to walk/stand [] Unable to read [] Unable to drive [] Unable to eat/drink [] Unable to sleep [] Unable to be with family [] Patient intubated [] Other: Summary Time spent with patient 5 min
--- NOTE | 2025-03-19 11:03 | PC.NURSE ---
Pt stated that they are going to obtain a PCP closer to their home upon release
[2025-03-19 12:46] LABS: Estmated Average Glucose 97; Hemoglobin A1C 5.0 % (4.0-6.0)
--- NOTE | 2025-03-19 13:48 | PC.NURSE ---
social work coordinator rounds- stopped by at 1050 and left the stroke education book bedside. Rounded again at 1315 and spoke with patient and , went through education for stroke including signs and symptoms and what to do, risk factors, and prevention. Patient and verbalized understanding, all questions answered.
--- NOTE | 2025-03-19 15:30 | PM.DCS ---
Discharge Providers Date of Admission: 03/18/25 10:33 Date of Discharge: March 19, 2025 Attending Provider at Admission: Tristin Martins Attending Provider at Discharge: Tristin Martins Diagnoses at Discharge Discharge Diagnosis 1. Abnormal EK. Hypertrophic cardiomyopathy: 3. Dizziness: 4. 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 During the emergency department stay, there was a transient unilateral facial droop and patient-reported speech change, noted as different by a co-worker; speech has partially improved but still sounds different to the patient. Reports transient visual change in the left eye earlier (felt different compared to the right side), which improved by the time of bedside testing. Denies headache, photophobia, chest pain, pressure, or exertional chest symptoms. Denies fever, chills, sore throat, sneezing, cough, myalgias, nausea, vomiting, or diarrhea. No known prior history of stroke or transient ischemic attack. No known history of irregular heartbeat (e.g., atrial fibrillation). Home blood pressures reportedly in the 140s mmHg systolic; more recently at work in the 170s systolic; markedly higher on presentation. Reports motion can provoke nausea and sensation of being upside down during episodes. Intermittent tinnitus reported. Not taking prescription medications currently and denies [id number] nonsteroidal anti-inflammatory drug use. Hospital Course Hospital Course During hospitalization he was monitored on telemetry to assess for any arrhythmia and further assessed with echocardiogram with finding of hypertrophic cardiomyopathy possibly apical type. He underwent additional assessment with stress testing which showed a small area of reversible defect in the apical lateral region suggesting ischemia in the distribution of the left circumflex artery. These findings were discussed with him by cardiology. He was started on metoprolol, lisinopril in addition to aspirin. As well as atorvastatin. He underwent MRI of the brain which showed no CVA. He had no recurrence of vertigo or left-sided facial droop or slurred speech. TIA had resolved. He will follow-up with primary provider for reassessment of both TIA as well as suspected coronary disease and hypertrophic cardiomyopathy as well as continued optimization of cardiovascular risk factors with hypertension. Continue on statin and optimizing of cholesterol A1c was checked and was not suggestive of diabetes at 5%. He is otherwise doing well and requesting to discharge home after discussion of results and plan with cardiology. Physical Exam Const: COMMON NORMALS: patient oriented x3 and alert GENERAL APPEARANCE: cooperative ORIENTATION/CONSCIOUSNESS: Yes awake HENMT: COMMON NORMALS: oropharynx normal Neck/C-Spine: COMMON NORMALS: no JVD Resp: COMMON NORMALS: normal respiratory effort and clear to auscultation bilaterally AUSCULTATION: clear to auscultation bilaterally Cardio: COMMON NORMALS: no JVD, regular rhythm, S1 normal heart sound present, S2 normal heart sound present and No murmurs present (Cardio) RHYTHM: regular rhythm HEART SOUNDS: S1 normal heart sound present and S2 normal heart sound present GI: COMMON NORMALS: Normal to inspection, nondistended, normoactive bowel sounds present, Soft to palpation and non-tender PALPATION: Yes Soft to palpation Extremity: COMMON NORMALS: no joint enlargement and no pedal edema Neuro: COMMON NORMALS: patient oriented x3 and moves all extremities SENSORIUM/ORIENTATION: Yes alert Skin: COMMON NORMALS: no rashes or lesions noted GENERAL SKIN EXAM: no rashes or lesions noted Discharge Data Studies Completed and Pending Completed Studies During Hospitalization Category Date Time Status CT head thrombolytic [id number] Stat Cat Scan 03/18/25 10:[address] head wo con* [id number] Stat Cat Scan 03/18/25 08:42 Completed Cardiac Stress Test MIBI [Sestamibi Stress Test Request Exams 03/19/25 09:00 Completed ] Routine XR chest 1V portable [id number] Stat Exams 03/18/25 06:35 Completed MR head wo con* [id number] Routine MRI 03/19/25 09:30 Completed NM ector perf SPECT r/s* [id number] Routine Nuc Med 03/19/25 17:40 Completed CV carotid duplex BI* [id number] Routine Ultrasound 03/18/25 11:52 Completed CV. echo complete* [id number] Routine Ultrasound 03/18/25 11:46 Completed Pending at discharge Category Date Time Status CA echo doppler complete Routine Exams 03/19/25 11:22 Ordered Basic Metabolic Panel AM LABS Lab 03/20/25 04:00 Ordered Basic Metabolic Panel AM LABS Lab 03/21/25 04:00 Ordered Complete Blood Count w/Auto AM LABS Lab 03/20/25 04:00 Ordered Complete Blood Count w/Auto AM LABS Lab 03/21/25 04:00 Ordered Platelet Count Q2D Lab 03/21/25 04:00 Ordered Platelet Count Q2D Lab 03/23/25 04:00 Ordered Radiology Impressions Chest X-Ray 03/18/25 06:35 IMPRESSION: No acute chest abnormality. Head CT 03/18/25 10:07 IMPRESSION: 1. No acute intracranial hemorrhage or edema. 2. No change compared to study performed earlier the same day. Notified Gerardo Gallegos DO at 03/18/2025 10:17 AM. Head MRI 03/19/25 09:30 IMPRESSION: No acute intracranial findings Laboratory Results WBC 12.20 10^3/uL (3.29-11.43) H 03/19/25 05:25 RBC 4.75 10^6/uL (3.85-5.65) 03/19/25 05:25 Hgb 14.80 g/dL (11.27-16.99) 03/19/25 05:25 Hct 42.0 % (37-53) 03/19/25 05:25 MCV 88.4 fl (82-101) 03/19/25 05:25 MCH 31.2 pg (27-33) 03/19/25 05:25 MCHC 35.2 g/dL (30-55) 03/19/25 05:25 RDW 13.0 % (12.1-15.1) 03/19/25 05:25 Plt Count 163 10^3/cmm (157-399) 03/19/25 05:25 MPV 9.0 fL (7.4-10.4) 03/19/25 05:25 Neut % (Auto) 83.4 % 03/19/25 05:25 Lymph % (Auto) 10.2 % 03/19/25 05:25 [place] % (Auto) 5.6 % 03/19/25 05:25 Eos % (Auto) 0.3 % 03/19/25 05:25 Baso % (Auto) 0.2 % 03/19/25 05:25 Neut # (Auto) 10.16 10^3/uL (1.8-7.7) H 03/19/25 05:25 Lymph # (Auto) 1.3 10^3/uL (0.8-4.8) 03/19/25 05:25 [place] # (Auto) 0.7 10^3/uL (0.2-0.9) 03/19/25 05:25 Eos # (Auto) 0.0 10^3/uL (0.0-0.8) 03/19/25 05:25 Baso # (Auto) 0.0 10^3/uL (0.0-0.1) 03/19/25 05:25 Nucleated RBC % (auto) 0 % 03/19/25 05:25 Nucleated RBCs # 0.0 /100WBC 03/19/25 05:25 APTT 117.8 SECONDS (23.9-36.7) H 03/19/25 06:39 D-Dimer 0.39 ug/mLFEU (0-0.59) 03/18/25 06:53 Sodium 139 mmol/L (136-145) 03/19/25 05:25 Potassium 4.0 mmol/L (3.5-5.1) 03/19/25 05:25 Chloride 105 mmol/L (98-107) 03/19/25 05:25 Carbon Dioxide 22 mmol/L (22-29) 03/19/25 05:25 Anion Gap 16.0 (5-19) 03/19/25 05:25 BUN 11 mg/dL (6-20) 03/19/25 05:25 Creatinine 1.0 mg/dL (0.7-1.2) 03/19/25 05:25 GFR Calculation 76.5 mL/min (90-130) L 03/19/25 05:25 Glucose 113 mg/dL (65-115) 03/19/25 05:25 POC Glucose 178 mg/dL (70-110) H 03/18/25 10:12 Estimat Average Glucose 97 03/19/25 05:25 Hemoglobin A1c 5.0 % (4.0-6.0) 03/19/25 05:25 Calculated Osmolality 288 mOsm/kg (285-295) 03/19/25 05:25 Calcium 8.4 mg/dL (8.5-10.5) L 03/19/25 05:25 Total Bilirubin 0.5 mg/dL (0.15-1.2) 03/18/25 06:53 AST 20 U/L (0-40) 03/18/25 06:53 ALT 32 U/L (0-41) 03/18/25 06:53 Alkaline Phosphatase 99 U/L (40-130) 03/18/25 06:53 Troponin T Baseline 34 ng/L (0-15) H 03/18/25 23:01 Troponin T 120 Minute 40.61 ng/L (0-15) H 03/19/25 01:05 Delta Troponin T 6.61 ABS# (0-10) 03/19/25 01:05 Troponin T Hi Sens 6Hr 43.19 ng/L (0-15) H 03/19/25 05:25 Troponin T Hi Sens 6Hr Delta 9.19 ng/L (0-12) 03/19/25 05:25 Total Protein 8.2 g/dL (6.6-8.7) 03/18/25 06:53 Albumin 4.7 g/dL (3.5-5.2) 03/18/25 06:53 Globulin 3.5 g/dL (1.3-4.6) 03/18/25 06:53 Triglycerides 117 mg/dL (0-150) 03/19/25 05:25 Cholesterol 169 mg/dL (0-200) 03/19/25 05:25 LDL Cholesterol, Calc 109 mg/dL (50-129) 03/19/25 05:25 HDL Cholesterol 37 mg/dL (60-100) L 03/19/25 05:25 LDL/HDL Ratio 2.95 RATIO (0.00-3.22) 03/19/25 05:25 Cholesterol/HDL Ratio 4.57 mg/dL (1.0-5.00) 03/19/25 05:25 Urine Color Yellow (Yellow) 03/18/25 07:02 Urine Appearance Clear (CLEAR) 03/18/25 07:02 Urine pH 8.0 (5-7) A 03/18/25 07:02 Ur Specific [place] 1.006 (1.005-1.030) 03/18/25 07:02 Urine Protein Trace (Negative) A 03/18/25 07:02 Urine Glucose (UA) Negative (Normal) 03/18/25 07:02 Urine Ketones Negative (Negative) 03/18/25 07:02 Urine Blood Trace (Negative) A 03/18/25 07:02 Urine Nitrate Negative (Negative) 03/18/25 07:02 Urine Bilirubin Negative (Negative) 03/18/25 07:02 Urine Urobilinogen 0.2 mg/dL (Negative) 03/18/25 07:02 Ur Leukocyte Esterase Negative (Negative) 03/18/25 07:02 Urine RBC 0-2 /hpf (0-2) 03/18/25 07:02 Urine WBC 0-5 /hpf (0-5) 03/18/25 07:02 Ur Squamous Epith Cells 0-5 /hpf (0-5) 03/18/25 07:02 Amorphous Sediment Not Reportable 03/18/25 07:02 Urine Bacteria None seen /hpf (NONE) 03/18/25 07:02 Hyaline Casts 0.40 /lpf 03/18/25 07:02 Vitals Last Vital Signs Temp 98.0 F 03/19/25 12:00 Pulse 98 03/19/25 12:00 Resp 20 H 03/19/25 12:00 BP 159/94 03/19/25 12:00 Pulse Ox 97 03/19/25 12:00 O2 Del Method Room Air 03/19/25 05:00 Discharge Plan Discharge Patient Disposition: Home Condition: Stable Prescriptions: New atorvastatin 40 mg Tablet 40 mg PO BEDTIME Qty: 90 0RF aspirin 81 mg Tablet,Delayed Release (Dr/Ec) 81 mg PO DAILY Qty: 90 0RF metoprolol tartrate 25 mg Tablet 25 mg PO BID@0900,2100 Qty: 180 0RF lisinopril 2.5 mg tablet 2.5 mg PO DAILY Qty: 90 0RF No Action No Known Home Medications Discharge Order = DC NOW: Discharge Order (Routine); Ordered 03/19/25 Ordered By: Tristin Martins Referrals: Your, PCP [Other] - 4-7 days Kt Bowens MD [Physician, Cardiology] - 2 weeks Discharge Diet: Cardiac Discharge Activity: Increase activity as tolerated Patient Instructions: Metoprolol (By mouth), Lisinopril (By mouth), Aspirin (By mouth), Atorvastatin (By mouth), Coronary Artery Disease (GEN), Hypertrophic Cardiomyopathy (GEN), Self Care Measures After a Stroke (DC), Stroke Prevention (DC), Prevent Cardiovascular Disease (GEN), Patient Portal & Kai Instructions, TIA Activity Restrictions/Additional Instructions: Follow-up with your primary doctor and with cardiology in [place] for reassessment after finding of coronary disease as discussed with cardiology. You are started on aspirin, atorvastatin, metoprolol, and lisinopril to help with manage cardiovascular disease and help reduce the chance of myocardial infarction and stroke. Follow-up with your primary doctor for reassessment after transient ischemic attack. Continue to monitor blood pressures at home, long-term target blood pressure is 120/80. Your A1c came back at 5%, which is normal, at this point you are not found to have diabetes. Avoid dehydration as discussed and continue assessment of hypertrophic cardiomyopathy as discussed with cardiology as well as seen on the echo. This is another reason for metoprolol and lisinopril. In case of worsening or new concerning symptoms, seek medical attention immediately as discussed. Seek reassessment by her primary provider prior to return to work. Discharge Attestations Time Spent in Discharge Care*: greater than 30 min Quality Metrics Clinical Quality Measures [ No reported AMI, CVA or VTE this stay] Coding Level of Care Code 65164 Diagnoses Abnormal EKG R94.31 Hypertrophic cardiomyopathy I42.2 Dizziness R42 Primary hypertension I10 Hypertension type: primary hypertension
--- NOTE | 2025-03-19 17:40 | NMCV_ITS ---
NM ector perf SPECT r/s* [id number] Mike Peña Age: 59 Gender: M : 1965 Exam Date: 03/19/2025 08:38 Ordering Phys: Tanika Lindsey MD ([email or web address]) Technologist: SAUL Sierra Exam Location: [facility] Indications: CP STRESS TEST [facility] IMAGE PROTOCOL Rest/Stress 1 Lexiscan Day Radiopharmaceutical Dose (mCi) Administration Site Administered by Rest: Tc-99m 10.7 IV SALU Mason Sestamibi Stress:Tc-99m 32.5 IV SAUL Mason Sestamibi Rest: 19-Mar-2025 60 Discovery 630 Stress: 19-Mar-2025 30 Discovery 630 0.4mg Lexiscan. Images obtained in supine and prone position. SPECT RESULTS Technical Quality: Good Raw Data Analysis: Normal Image Corrections: No attenuation or motion correction applied Summed Stress Score: 1 Summed Rest Score: 2 Summed Difference Score: 1 PERFUSION FINDINGS A small area of slightly decreased resedate was noted in the apical lateral region with complete reversibility. FUNCTIONAL RESULTS (calculated via Gated SPECT) Stress Image LV EF (%): 65 Stress EDV (mL):110 TID: 0.89 Stress ESV (mL):38 FUNCTIONAL FINDINGS: Segmental wall motion analysis revealing no gross wall motion abnormalities IMPRESSIONS 1. Myocardial perfusion imaging revealing a small area of reversible defect in the apical lateral region, suggesting ischemia in the distribution of the left circumflex artery. 2. Normal LV ejection fraction of 65% 3. LV wall motion analysis revealing no gross wall motion abnormalities. 4. Normal LV volume No similar previous studies are available for comparison Dr Tanika Lindsey MD [facility] (Electronically Signed) Final Date: 19 March 2025 12:03 S
== END 2025-03-19 16:25 | disposition home or self-care (01) ==
LOC: ER 09:53 → CSU 10:34
PROVIDERS: Internal Medicine; Admitting Provider Internal Medicine; Emergency Provider Family Medicine; Visit Provider Internal Medicine
DX: G45.9 Transient cerebral ischemic attack, unspecified (principal); R94.31 Abnormal electrocardiogram [ECG] [EKG]; I42.2 Other hypertrophic cardiomyopathy; I10 Essential (primary) hypertension; Z79.82 Long term (current) use of aspirin; Z82.49 Family history of ischemic heart disease and other diseases of the circulatory system; Z93.3 Colostomy status; Z85.038 Personal history of other malignant neoplasm of large intestine
CPT/HCPCS: 36415; 36416; 70450; 70551; 71045; 78452; 80048; 80053; 80061; 81001; 82962; 83036; 84484; 85025; 85378; 85730; 92523; 92610; 93005; 93017; 93306; 93880; 96361; 96372; 96374; 96375; 96376; 97161; 97165; 99285; A9500; G0378; J0360; J1200; J1644; J1650; J2060; J2405; J2785; J3490; J7030; J8597; J9999